=== PATIENT | male | born 1995 | race Two or more races ===

== ENCOUNTER 2020-10-06 20:16 | Emergency (ER) | payer OTHER ==
[~2020-10-06] VITALS: Ht 162.6 cm; Wt 66.7 kg
[2020-10-06 22:15] VITALS: BP 118/70
== END 2020-10-06 22:15 | disposition home or self-care (01) ==
LOC: EDBD 20:16 → FSED 20:30
DX: R10.32 Left lower quadrant pain (principal); R31.9 Hematuria, unspecified; M54.5 Low back pain; N20.1 Calculus of ureter
CPT/HCPCS: 74176; 80053; 80076; 81003; 85025; 99283